=== PATIENT | female | born 2000 | race Caucasian/White ===

== ENCOUNTER 2022-07-27 08:50 | Outpatient (CLI) | payer BC, SELFPAY ==
--- NOTE | 2022-07-27 09:00 | CRLHL7_ITS ---
For Patients: As a result of the Cures Act, medical imaging exams and procedure reports are released immediately into your electronic medical record. You may view this report before your referring provider. If you have questions, please contact your health care provider. INDICATION: First trimester scan, establish dates. COMPARISON: None. TECHNIQUE: Real-time tyler-scale imaging of the pelvis was performed. FINDINGS: Sonographic imaging demonstrates a single living intrauterine gestation. The embryo demonstrates a regular cardiac rate measuring 166 beats per minute. The embryo`s crown-rump length measurement of 1.8 cm corresponds to a gestational age of 8 weeks 2 days with a sonographic due date of March 06, 2023. There is a normal-appearing yolk sac measuring 2.7 mm. There are no gross abnormalities noted within the embryo at this early state of development. The placenta has not yet developed. The gestational sac has a normal appearance and there is no evidence of a perigestational hemorrhage. The amount of fluid within the sac appears appropriate for gestational age. The cervix is closed. The myometrium appears normal. The ovaries are of normal size. The right ovary measures 3.2 x 1.2 x 1.2 cm. The left ovary measures 3.4 x 2.1 x 1.7 cm. Corpus luteum cyst of on the left measuring 1.8 x 1.7 x 1.5 cm. There are no suspicious fluid collections noted in the cul-de-sac. IMPRESSION: Normal first trimester OB ultrasound exam. Gestational age calculated at 8 weeks 2 days with a sonographic due date of March 06, 2023. Dictated by Lucho Galloway MD @ 07/27/2022 11:21:19 AM (Electronically Signed)
== END 2022-07-27 08:51 | disposition home or self-care (01) ==
LOC: US 08:54
PROVIDERS: Visit Provider Advanced Practice Midwife
DX: Z34.91 Encounter for supervision of normal pregnancy, unspecified, first trimester (principal); Z3A.08 8 weeks gestation of pregnancy
CPT/HCPCS: 76817; 86592; 86703; 86762; 86787; 86803; 86850; 86900; 86901; 87086; 87340; 87491; 87591

== ENCOUNTER 2022-10-19 08:19 | Outpatient (CLI) | payer BC, SELFPAY ==
--- NOTE | 2022-10-19 08:15 | CRLHL7_ITS ---
For Patients: As a result of the Century Cures Act, medical imaging exams and procedure reports are released immediately into your electronic medical record. You may view this report before your referring provider. If you have questions, please contact your health care provider. INDICATION: Evaluate anatomy. COMPARISON: 07/27/2022 TECHNIQUE: Real time tyler scale imaging of the fetus was performed as well as color Doppler analysis of the umbilical vessels. FINDINGS: Sonographic imaging demonstrates a single living intrauterine gestation. Fetus demonstrates a regular cardiac rate of 143 beats per minute. Fetus has a vertex position. The placenta lies left posterior without evidence of placenta previa. The edge of the placenta is located 10.8 cm from the internal cervical os. Amniotic fluid volume appears normal. Single deepest vertical pocket: 4.6 cm. The cervix is closed and measures 3.8 cm in length. The composite ultrasound gestational age is calculated at 20 weeks 6 days with an estimated sonographic due date of 03/02/2023. The estimated weight is 365 grams which lies at the 90th %. The following biometric measurements were obtained: Biparietal diameter: 5.2 cm/21 weeks 5 days greater than 97th% Head circumference: 18.2 cm/20 weeks 4 days 81st% Abdominal circumference: 15.9 cm/21 weeks 0 days 83rd% Femur length: 3.2 cm/20 weeks 0 days 55th% The HC/AC ratio measures: 1.15 range (1.06-1.25) On anatomic survey, there is a normal appearance of the cerebral ventricles, cavum septi pellucidi, cisterna magna and cerebellum. The nose, lips, and facial profile appear normal. The cervical, thoracic and lumbar spine are well visualized and appear normal. There is a normal four-chamber heart view and the left and right ventricular outflow tracts appear normal. The diaphragm and stomach appear normal. The kidneys and bladder also appear normal. There is a normal three-vessel cord and cord insertion site. The four extremities appear normal. IMPRESSION: Sonographic gestational age 20 weeks 6 days and sonographic due date 03/02/2023. Sonographic age is 8 days ahead of the clinical age. No intrinsic abnormalities noted on anatomic survey. Dictated by Syed Lee MD @ 10/20/2022 9:50:24 AM (Electronically Signed)
== END 2022-10-19 08:20 | disposition home or self-care (01) ==
LOC: US 08:21
PROVIDERS: PCP Advanced Practice Midwife; Visit Provider Advanced Practice Midwife
DX: Z34.82 Encounter for supervision of other normal pregnancy, second trimester (principal); Z3A.20 20 weeks gestation of pregnancy
CPT/HCPCS: 76805

== ENCOUNTER 2022-12-14 13:25 | Outpatient (CLI) | payer BC, SELFPAY | END 2022-12-14 13:26 | disposition home or self-care (01) | LOC: NFLDREF 12-17 00:41 | PROVIDERS: PCP Advanced Practice Midwife; Referring Provider Advanced Practice Midwife; Visit Provider Advanced Practice Midwife | DX: Z34.92 Encounter for supervision of normal pregnancy, unspecified, second trimester (principal); Z3A.27 27 weeks gestation of pregnancy | CPT/HCPCS: 86592 ==

== ENCOUNTER 2023-01-11 07:16 | Outpatient (CLI) | payer BC, SELFPAY ==
--- NOTE | 2023-01-11 07:15 | CRLHL7_ITS ---
For Patients: As a result of the Cures Act, medical imaging exams and procedure reports are released immediately into your electronic medical record. You may view this report before your referring provider. If you have questions, please contact your health care provider. INDICATION: female. COVID in . TECHNIQUE: Transabdominal obstetrical ultrasound. COMPARISON : October 19, 2022. FINDINGS: Single living intrauterine in vertex presentation. Posterior placenta. heart rate 136 beats per minute. Normal amniotic fluid. Single deepest pocket measurement 7.7 cm. Amniotic fluid volume index is normal at 19.8 cm. Biparietal diameter 8.6 cm, 34 weeks 4 days, greater than the 97th percentile. Head circumference 31.1 cm, 34 weeks 6 days, 90th percentile. Abdominal circumference 29.2 cm, 33 weeks 1 day, 86th percentile. Femur length 6.2 cm, 32 weeks 1 day, 48th percentile. Composite calculated ultrasound age 33 weeks 5 days with a sonographic due date of February 24, 2023. Estimated weight 2136 g which lies at the 84th percentile. The head to abdominal circumference ratio is 1.07 which is within normal limits (0.95-1.11). IMPRESSION: Single living intrauterine in vertex presentation. Composite calculated ultrasound age 33 weeks 5 days with a sonographic due date of February 24, 2023. This is advanced by 14 days when compared with the age based on the last menstrual period provided. Appropriate growth and maturation when compared with the prior study. Dictated by Lucho Galloway MD @ 01/11/2023 9:16:50 AM (Electronically Signed)
== END 2023-01-11 07:17 | disposition home or self-care (01) ==
LOC: US 07:17
PROVIDERS: PCP Advanced Practice Midwife; Visit Provider Advanced Practice Midwife
DX: U07.1 COVID-19 (principal); O98.513 Other viral diseases complicating pregnancy, third trimester; Z3A.33 33 weeks gestation of pregnancy
CPT/HCPCS: 76816

== ENCOUNTER 2023-03-14 05:25 | Inpatient (IN) | payer BC, SELFPAY ==
[2023-03-14] VITALS (75 sets, daily range): BP systolic 77–135; BP diastolic 40–118; PULSE 60–107; RESP 16; TEMP 36.6–37.1; O2SAT 96–100; BMI 32.1
[2023-03-14] MEDS: LACTATED RINGERS 1000 ML 1,000 ML 500 ML IV ×2 (06:45→08:42)
[2023-03-14] MEDS: ROPIVACAINE 0.2 % PF 10 ML INJ 20 MG EPIDURAL (06:52)
[2023-03-14] MEDS: ROPIVACAINE 0.2% 100 ml 100 ML 12 MG EPIDURAL ×2 (06:58→15:15)
--- NOTE | 2023-03-14 07:12 | W.PM.LDBA ---
Subjective History of Present Illness Time Seen by Provider: 07:18 Date Seen: 03/14/23 Comments: Di is being admitted to Labor and Delivery for labor. She is a 22 year old G 1 P 0 at?40.4 weeks gestation. Her full history and physical was dictated by Angie Thorne on 02/22/23. Please see this for details. ? Di had her membranes stripped in the office yesterday. Ctx began shortly after, becoming stronger throughout the night. Denies SROM. She is coping well with labor pain/contractions. Her partner is with her for support. She has an epidural in place for pain management, and is currently comfortable with it. OB Problem List: ? ? : Bret H & P done 02/22 by Angie Thorne IOL scheduled for 03/18 for Post-dates 1.? Baby aspirin at 12 weeks - 2 risk factors - primigravida, mother had preeclampsia. 2.? Hx of depression and anxiety -Has previously done therapy and medication, stable now X 2 years without 3.? Rubella Non immune - NEEDS vaccine 4.? COVID infection 10/06/2022 Growth at 32 weeks: EFW 84%ile, DESTINY 19.8 at 32wks and measuring 14 days ahead with good dating Growth at 36 weeks: EFW 85%ile, normal DESTINY 6.6 5. Anemia, 10.5 at 28 weeks 6. Possible kidney stones and UTI, e.coli, 02/01 Antibiotics prescribed, Cephalexin x7days Needs test of cure in 4 weeks (~38 wks) 7. Anemia, Hgb 10.9. Hgb 10.7 at 36 weeks. Iron supplement M/W/F 8. Pyelonephritis at 36.2wks. Hospitalized for IV abx Prophylactic abx until delivery. OB - Problem Based A/P Additional Plan (1) Uterine contractions: Status: Acute (2) : Status: Acute Plan at 40.4 weeks GBS neg complicated by: -hx of depression & anxiety -rubella non immune -Covid in -anemia -Possible kidney stones/UTI -Pylonephritis at 36 weeks Spontaneous active labor, uncomplicated at this time Epidural placed for pain management 1. Admit to L & D for active labor 2. Candidate for analgesia of choice, epidural already placed per pt preference 3. Continuous monitoring r/t epidural 4. IV placed r/t epidural 5. Expectant management at this time 6. Anticipate progress to NVD Delivery/Labor/Induction Plan Plan: expectant management OB Exam Physical Exam Vital signs: Temp Pulse Resp BP Pulse Ox 98.4 F 79 16 113/70 99 03/14/23 04:34 03/14/23 07:08 03/14/23 04:34 03/14/23 07:08 03/14/23 07:05 Narrative: VSS, afebrile? General Appearance:? Calm, cooperative.? No acute distress.? Normal affect.? Psychiatric Exam: Alert and oriented, appropriate affect? HEENT: normocephalic, neck supple, full ROM? Respiratory:? Symmetrical chest wall movement.? Normal respiratory effort.? Clear to auscultation? Cardiac:? regular rate and rhythm? Abdomen: Gravid, non tender? Extremities:? normal and trace edema? Skin: warm, dry.??? Ctx:? Q 2-5 min apart.? ? Moderate?- Strong? FHTs:? Baseline: 140.? Variability: mod.?? Accels: present.??? Decels:? none.? SVE: /+1 per RN? Membranes: intact?
--- NOTE | 2023-03-14 08:38 | P.ANBPRC_ITS ---
PFSH PFS Surgical History [place] teeth extracted ?K08.409 - Partial loss of teeth, unspecified cause, unspecified class (ICD- 10) Social History What is your current living situation?: I presently have a place to live Problems where you live: no known problems In the past 12 months, utilities in danger of being shut off: no In the past 12 mos, have been you worried that your food would run out before you had money to buy more?: never true In the past 12 mos, the food you bought just didn't last and you didn't have money to buy more?: never true Smoking Status: Never smoker How often does anyone, including family, friends and others, physically hurt you : never How often does anyone, including family, friends and others, insult or talk down to you: never How often does anyone, including family, friends and others, threaten you with harm: never How often does anyone, including family, friends and others, scream or curse at you: never Little interest or pleasure in doing things: not at all Feeling down, depressed, or hopeless: not at all Meds Home Medications and Allergies Home Medications Medication Instructions Recorded Confirmed Type aspirin 81 mg capsule 81 mg PO QDAY 09/21/22 03/14/23 History ferrous fumarate-vitamin C 66 1 tab PO DAILY 12/27/22 03/14/23 History mg-125 mg chewable tablet Allergies Allergy/AdvReac Type Severity Reaction Status Date / Time No Known Drug Allergies Allergy Verified 03/14/23 04:15 Results Vital Signs Vital Signs: Last Vital Signs Temp 98.8 F 03/14/23 07:12 Pulse 64 03/14/23 08:22 Resp 16 03/14/23 07:12 BP 89/55 L 03/14/23 08:22 Pulse Ox 98 03/14/23 08:32 Weight: 90.31 kg Height: 167.64 cm Anesthesia Procedures Epidural Insertion Patient Location: OB Start Time: 06:40 Stop Time: 07:40 Start Date: 03/14/23 Stop Date: 03/14/23 Reason for Block: primary anesthetic Patient Position: sitting Performed By: Austin Roy Preanesthetic Checklist: IV checked, risks and benefits discussed, surgical consent, monitors and equipment checked, pre-op evaluation, timeout performed and anesthesia consent Prep: chlorhexidine gluconate Monitoring: blood pressure monitoring, nuclear monitoring technician, continuous pulse oximetry and heart rate Approach: midline Vertebral Space: lumbar (1-5) Needle Type: Tuohy needle Injection Technique: continuous catheter (catheter) Needle gauge: 17 Needle Length (cm): 10 cm Needle Insertion Depth (cm): 5 Catheter Gauge: 19 Catheter Type: multi-orifice Catheter at skin depth (cm): 11 Test Dose Result: negative and lidocaine 1.5% with epinephrine 1 to 200,000
[2023-03-14] MEDS: PHENYLEPHRINE 100 MCG/ML SYRINGE IVP (09:54)
[2023-03-14] MEDS: OXYTOCIN 30 unit/500 ML in NS 30 UNIT/500 ML BAG 325 UNIT IVPB (14:07)
[2023-03-14] MEDS: LIDOCAINE 1 % PF 30 ML INJECTION (14:33)
[2023-03-14 16:19] LABS: Basophils Percent Auto 0.1 % (0.0-3.0); Eosinophils Percent Auto 0.1 % (0.0-7.0); Hematocrit 34.1 % (33.0-51.0); Immature Granulocytes Pct Auto 0.3 %; Lymphocytes Percent Auto 5.2 % (20-44); Mean Corpuscular HGB Conc 32 gm/dL (32-36); Mean Corpuscular Hemoglobin 30 pg (26-34); Mean Corpuscular Volume 92 fL (80-100); Monocytes Percent Auto 5.6 % (0.0-11.0); Neutrophils Percent Auto 88.7 % (42.0-72.0); Platelet Count* 159 K/uL (140-440); RDW Coefficient of Variation % 13.9 % (11.5-15.5); Red Blood Count 3.71 m/uL (4.00-5.20)
[2023-03-14] MEDS: TRANEXAMIC ACID 100 MG/ML INJ 1000 MG IV (16:28)
[2023-03-14 16:36] LABS: Slide Review Reflex No
--- NOTE | 2023-03-14 16:44 | W.PM.VAGDEL1 ---
Procedure Delivery date: 03/14/23 Procedure Done: Global Procedure Details: Procedures Operation Date: 03/14/23 15:45 Actual Procedure Side Surgeon p Vaginal Laceration Repair Not Applicable Seratiara Blake MD Intrapartal Events: None Delivery monitor: external FHT and external uterine Route of delivery: Laceration description: Perineal - 2nd Degree (Left side anterior laceration also repaired) Delivery repair: Vicryl Estimated blood loss (mL): 400 Anesthesia type: Epidural Disposition: floor
[2023-03-14] MEDS: ESTROGENS, CONJUGATED VAGINAL 0.625 MG/G CREAM 1 APPLIC VAGINAL (17:18)
--- NOTE | 2023-03-14 17:20 | CRLHL7_ITS ---
For Patients: As a result of the Century Cures Act, medical imaging exams and procedure reports are released immediately into your electronic medical record. You may view this report before your referring provider. If you have questions, please contact your health care provider. Indication: EVAL FOR RETAINED INSTRUMENTS POST . Technique: Abdomen 1 view. Comparison: None. Findings/Impression: There are 2 thin wire-like foreign bodies versus surgical materials projecting over the abdomen, the first descends from the epigastric region distally down to the mid lumbar spine in the midline. The second is coiled in the lower pelvis. Recommend clinical correlation. Nonobstructive bowel gas pattern. Region of lucency projecting over the left upper quadrant and left lateral abdominal wall, likely postsurgical. The osseous structures are unremarkable for age. Dictated by Caesar Enamorado MD @ 03/14/2023 6:39:01 PM (Electronically Signed)
[2023-03-14 17:22] LABS: INR 0.92 (0.91-1.10); Prothrombin Time 12.9 Seconds
[2023-03-14 17:23] LABS: Partial Thromboplastin Time* 26 Seconds (23-33)
--- NOTE | 2023-03-14 18:11 | PM.PROC ---
Procedure Note Time Seen by Provider: 16:00 Date Seen: 03/14/23 Provider Contact Time: 15:15 Date of procedure: 03/14/23 Will [facility] bill your pro fee for this procedure?: Yes Procedure Description: VAGINAL LACERATION REPAIR PREOPERATIVE DIAGNOSIS: 1. Vaginal lacerations POSTOPERATIVE DIAGNOSIS: 1. Left pelvic side wall hematoma 2. Left sulcal laceration starting from the cervicouterine junction extending to left labia minora PROCEDURE: 1. EUA 2. Vaginal lacerations repair SURGEON: Sera Blake MD SENIOR SECURITY ARCHITECT: Shahla Braxton MD ANESTHESIA: Epidural FINDINGS: 1. cervix without laceration 2. Left pelvic side wall hematoma - non-expanding 3. Left sulcal laceration starting from the cervicouterine junction extending to left labia minora with brisk bleeding ESTIMATED BLOOD LOSS: 400 cc from delivery, 400 cc from OR URINE OUTPUT: 600 cc, knight in place PACKING: Vaginal packing soaked with Premarin cream in place, tied to Knight cath COMPLICATIONS: Bleeding from laceration requiring 1g of TXA and 1u of FFP PREOP ANTIBIOTIC: 2g of cefoxitin SPECIMEN: None INDICATIONS: 22yo G 1 P 1001, with continued vaginal bleeding after spontaneous vaginal delivery and laceration repairs. I was asked to assess the patient at 3:15 p.m. due to continued vaginal bleeding from an unknown source. Upon initial examination, there was overt bleeding from an unrepaired laceration on the left pelvic side wall. I was unable to perform adequate exam bedside due to brisk bleeding and limited tools. I counseled patient on repair in the operating room as the safest option. She was consented for exam under anesthesia and laceration repair. Vaginal packing was placed for temporary tamponade. DESCRIPTION OF PROCEDURE: The patient was taken to the operating room where her epidural was appropriately redosed. Vaginal packing removed. She was prepared and draped in normal sterile fashion in the dorsal lithotomy position in [facility] stirrups, taking care to avoid lower extremity hyperextension, hyperflexion or compression. A surgical time-out was performed with the entire operative staff per protocol. Perioperative antibiotics were given and pneumoboots were placed and activated. EUA revealed the above findings. Knight catheter was placed. Albert and Breisky retractors were placed in the patient's vagina and two ring forceps were placed on the anterior and posterior lips of the cervix to trace and confirm that there was no cervical laceration. A 2x2 cm hematoma was identified on left pelvic side wall. The apex of the left sulcal laceration was noted to be the cervicouterine junction. Anchoring stitch with 2-0 vicryl was placed at the apex. The laceration was reapproximated using 2-0 Vicryl in a continuous locking manner. Several [id number] were placed along the length of the laceration repair due to continued bleeding. I had concern for possible coagulopathy given her brisk bleeding at other sutures sites that were repaired prior to OR as well. Decision was made to give her 1g of TXA and 1u of FFP. Bleeding improved after 1g of TXA was administered. [id number] were used to obtain hemostasis at all bleeding sites. Rectal exam was performed to confirmed no retained sutures in the rectum. Hemostasis was confirmed again. Premarin soaked vaginal packing was placed and tied to her knight catheter. Both will be removed in 12 hours. The patient tolerated the procedure well. Sponge, lap and needle counts were correct x 2. The patient was taken to the recovery room in stable condition. I was informed that needle count was incorrect during her vaginal delivery and they were unable to find the missing needle. Decision was made to obtain an X-ray. Vaginal packing noted on X-ray but no needle identified. Anesthesia: epidural
--- NOTE | 2023-03-14 19:56 | W.PM.OBVAGDE ---
OB Procedure Vag Delivery Mother Details Mother Details: The patient is a 22 year-old, now 1, Para 1, admitted on 03/14/23 at 40.4 Days gestation. : 1 Para: 1 Weeks Gestation: 40.4 Admission Date: 03/14/23 Additional Details Amniotic Membrane Status: SROM (at delivery) Amniotic Membrane Rupture Date: 03/14/23 Amniotic Membrane Rupture Time: 14:05 Amniotic Membrane Fluid Description: Clear Analgesia/Anesthesia Type: Epidural Waterbirth: No Pitcoin: No (PP only for AMTSL) Intrapartal Events: None Labor Onset: 06:45 Complete: 11:43 Pushin:51 Heart: heart tones during second stage were 135, minimal variability, occ variability with accels. Delivery Details Delivery Date: 03/14/23 Delivery Time: 14:05 Route of delivery: Infant Gender: Male Viability: Alive; Heart Rate Present Position at Delivery: OA Delivery Details: Di continued to progress after epidural was placed. SVE to assess for progress, and she was noted to be complete and +1 station, feeling mild pressure. Practice push done, and some descent noted. Decision made to continue to push. She pushed in various positions to help with descent. Slow but continued progress noted. At 1405 a viable? male delivered in vertex OA presentation over intact perineum via spontaneous vaginal?delivery. ?Infant was placed on maternal abdomen, and bag was removed from infants head. SROM occurred after delivery of the head. ?Cord was clamped and cut after about 5 mins. Increased bleeding noted at that time, and decision made to clamp and cut. Placenta delivered easily shortly after.? ? weight pending. ? 9 at 1 minute and 9 at 5 minutes. ?Shoulder dystocia: no. ?Nuchal cord: no. Nuchal arm/hand noted shortly after delivery of head, unable to assess which one, but likely left. Placenta delivered spontaneously and complete at 1411 with a 3 vessel cord. Mother and were stable after?delivery. Lacerations:? 2nd degree, repaired with 3-0 vicryl.? Left anterior vaginal wall noted to be briskly bleeding, repaired first. After both repairs done, noted continued trickle of blood. Dr. Blake called to bedside to assess for possible cervical laceration or source of bleeding. Noted to be deep continuation of left anterior vaginal wall laceration that was repaired. Decision made to proceed to OR for further repair. Blood loss: 400 mL prior to OR. Blood loss measurement type: QBL? Sponge count is correct. Needle count - extra suture thrown by RN, wrong needle. Not removed from package, but not removed from table or used on pt. 2 suture needles and straight needle removed from table. 1 Minute Interval Total Score: 9 5 Minute Interval Total Score: 9 Additional Details Shoulder Dystocia: No Placenta Delivery Time: 14:11 Placental Delivery Description: Spontaneous Delivery repair: Vicryl Procedure Done: Global Blood Loss: 800 Laceration: Perineal - 2nd Degree Blood Loss Measurement Type: QBL Bakri Used: No Sponge/Need Count Correct: No (xray ordered, MD notified) Cord Vessel Description: 3 Vessels Event Summary Status: Mother and were stable after delivery. Disposition: floor
[2023-03-14] MEDS: cefOXitin 2 GM in 0.9 % SODIUM CHLORIDE Mini-bag 100 ML IVPB (20:43)
[2023-03-14] MEDS: IBUPROFEN 600 MG TABLET PO (21:11)
[2023-03-14] MEDS: OXYCODONE 5 MG TABLET PO ×2 (21:31→22:23)
[2023-03-14 21:46] LABS: INR 1.02 (0.91-1.10)
[2023-03-14 21:47] LABS: Fibrinogen* 362 mg/dL (200-450); Partial Thromboplastin Time* 27 Seconds (23-33)
[2023-03-14 21:50] LABS: Basophils Percent Auto 0.1 % (0.0-3.0); Eosinophils Percent Auto 0.1 % (0.0-7.0); Hematocrit 27.2 % (33.0-51.0); Hemoglobin* 8.8 gm/dL (12.0-16.0); Immature Granulocytes Pct Auto 0.3 %; Lymphocytes Percent Auto 5.8 % (20-44); Mean Corpuscular HGB Conc 32 gm/dL (32-36); Mean Corpuscular Hemoglobin 30 pg (26-34); Mean Corpuscular Volume 92 fL (80-100); Monocytes Percent Auto 4.3 % (0.0-11.0); Neutrophils Percent Auto 89.4 % (42.0-72.0); Platelet Count* 150 K/uL (140-440); Red Blood Count 2.96 m/uL (4.00-5.20); White Blood Count* 13.98 K/uL (4.50-11.00)
[2023-03-14 22:09] LABS: Slide Review Reflex No
[2023-03-15] MEDS: ACETAMINOPHEN 500 MG TABLET 1000 MG PO ×4 (00:32→18:16)
[2023-03-15 01:04] VITALS: BP 105/64; PULSE 86; RESP 16; TEMP 36.6; O2SAT 97
[2023-03-15] MEDS: IBUPROFEN 600 MG TABLET PO ×4 (02:55→21:07)
[2023-03-15] MEDS: OXYCODONE 5 MG TABLET PO (02:56)
[2023-03-15 03:48] VITALS: BP 108/69; PULSE 101; RESP 16; TEMP 36.6; O2SAT 96
[2023-03-15 07:39] LABS: Basophils Percent Auto 0.2 % (0.0-3.0); Eosinophils Percent Auto 0.6 % (0.0-7.0); Hematocrit 26.1 % (33.0-51.0); Hemoglobin* 8.3 gm/dL (12.0-16.0); Immature Granulocytes Pct Auto 0.5 %; Mean Corpuscular HGB Conc 32 gm/dL (32-36); Mean Corpuscular Hemoglobin 30 pg (26-34); Mean Corpuscular Volume 93 fL (80-100); Neutrophils Percent Auto 76.7 % (42.0-72.0); Platelet Count* 145 K/uL (140-440); RDW Coefficient of Variation % 14.2 % (11.5-15.5); Red Blood Count 2.81 m/uL (4.00-5.20); White Blood Count* 12.19 K/uL (4.50-11.00)
--- NOTE | 2023-03-15 07:39 | PM.OBPNVD1 ---
OB - PN:Subj Subjective Date Seen: 03/15/23 Patient comments OB post-: no complaints, pain well controlled, tolerating diet and flatus present [place] status: and doing well [place] feeding status: exclusively Narrative: Day 1:? Vaginal Delivery at 40 and 4/7 weeks.? ?? Complications:? deep 2nd degree laceration requiring repair in the OR for visualization ? The patient feels well.? The pain is well controlled with current medications.? She has no new complaints.? Urinary output is adequate. I removed her Cho catheter at the time of the assessment and she has not yet been up to urinate.? Has a good appetite, is tolerating a general diet, is passing flatus, and has not had a bowel movement.? Has small amount of rubra lochia.?Her vaginal packing was removed. there was a scant amount of bleeding that came out with the packing but no continued bleeding. Bleeding precautions reviewed. She is ambulating well.?Hgb this am was 8.3. Denies feeling dizzy, lightheaded or unexpected fatigue. Will begin PO iron supplementation. OB - PN: Obj Exam Physical Exam: Vital signs: Temp Pulse Resp BP Pulse Ox O2 Del Method 97.8 F 101 H 16 108/69 96 Room Air 03/15/23 03:48 03/15/23 03:48 03/15/23 03:48 03/15/23 03:48 03/15/23 03:48 03/15/23 03:48 Narrative: GENERAL APPEARANCE:? normal affect, alert, no distress? MOOD:? appropriate? CHEST:? clear to auscultation and percussion? HEART:? regular rate and rhythm? ABDOMEN:? soft, non-tender the uterine fundus is U/2 and is appropriate for the stage of recovery.? PERINEUM:? mild edema of the perineum, there is a deep 2nr degree that is healing well.? EXTREMITIES:? normal and no edema? OB - PN: Obj Data Labs Labs: Laboratory Results - last 24 hr 03/14/23 03/14/23 15:42 21:24 WBC 17.20 H 13.98 H RBC 3.71 L 2.96 L Hgb 11.0 L 8.8 L Hct 34.1 27.2 L MCV 92 92 MCH 30 30 MCHC 32 32 RDW Coeff of Rafy 13.9 14.0 Plt Count 159 150 Neut % (Auto) 88.7 H 89.4 H Lymph % (Auto) 5.2 L 5.8 L Brewster % (Auto) 5.6 4.3 Eos % (Auto) 0.1 0.1 Baso % (Auto) 0.1 0.1 Neut # (Auto) 15.30 H 12.50 H Lymph # (Auto) 0.90 0.80 L Brewster # (Auto) 1.00 H 0.60 Eos # (Auto) 0.00 0.00 Baso # (Auto) 0.00 0.00 INR 0.92 1.02 APTT 26 27 Fibrinogen 362 Blood Type A Positive Antibody Screen NEGATIVE Crossmatch (AHG) See Detail OB - PN: A/P Delivery Assessment and Plan (1) Anemia, : Status: Acute (2) care following vaginal delivery: Status: Acute (3) Lactating mother: Status: Acute Plan 1. Routine cares.? 2. Anticipate discharge tomorrow. 3. PO iron supplementation ordered.? Plan day: 1 Plan: routine care
[2023-03-15 07:40] VITALS: BP 117/75; PULSE 84; RESP 18; TEMP 36.6; O2SAT 96
[2023-03-15 07:46] LABS: Slide Review Reflex No
[2023-03-15] MEDS: DOCUSATE SODIUM 100 MG CAPSULE PO ×2 (08:48→21:07)
[2023-03-15] MEDS: FERROUS SULFATE 325 MG TABLET PO (08:48)
[2023-03-15 12:59] VITALS: BP 104/70; PULSE 91; RESP 16; TEMP 36.8; O2SAT 98
[2023-03-15 16:36] VITALS: BP 105/66; RESP 18; TEMP 36.7; O2SAT 99
[2023-03-15 20:20] VITALS: BP 106/70; PULSE 80; RESP 16; TEMP 36.5; O2SAT 97
[2023-03-16] MEDS: ACETAMINOPHEN 500 MG TABLET 1000 MG PO ×2 (02:04→08:05)
[2023-03-16 02:19] VITALS: BP 110/77; PULSE 76; RESP 16; TEMP 36.5; O2SAT 97
[2023-03-16] MEDS: IBUPROFEN 600 MG TABLET PO (04:50)
[2023-03-16] MEDS: FERROUS SULFATE 325 MG TABLET PO (08:05)
[2023-03-16] MEDS: DOCUSATE SODIUM 100 MG CAPSULE PO (08:06)
[2023-03-16 08:08] VITALS: BP 109/77; PULSE 98; RESP 16; TEMP 36.4; O2SAT 97
--- NOTE | 2023-03-16 09:25 | P.DS_ITS ---
DS: Providers Provider Date Seen: 03/16/23 Date of admission: 03/14/23 05:25 Primary care physician: Radha Thorne CNM Admitting Clinician: Radha Porras CNM Attending Physician on discharge: Radha Porras CNM Date of Discharge: 03/16/23 DS: Diagnosis Discharge Diagnosis (1) Lactating mother: Status: Acute (2) care following vaginal delivery: Status: Acute (3) Anemia, : Status: Acute Exam Narrative: Exam Narrative: GENERAL APPEARANCE:? normal affect, alert, no distress? MOOD:? appropriate? CHEST:? clear to auscultation and percussion? HEART:? regular rate and rhythm? ABDOMEN:? soft, non-tender the uterine fundus is 2 cm Below Umbilicus, Midline and is appropriate for the stage of recovery. ? PERINEUM:? mild edema of the perineum, there is a deep 2nd degree that is healing well.? EXTREMITIES:? normal and no edema? Patient has no complaints? No active bleeding?? Doing well? She is requesting discharge home.? Const: Vital Signs, click to edit/add: Vital Signs - 24 hr 03/15/23 12:59 03/15/23 16:36 03/15/23 20:20 Temperature 98.3 F 98.0 F 97.7 F Pulse Rate [Blood Pressure Cuff] 91 80 Respiratory Rate 16 18 16 Blood Pressure [Ri ght Arm] 104/70 105/66 106/70 Pulse Oximetry 98 99 97 Oxygen Delivery Me thod Room Air Room Air Room Air 03/16/23 02:19 03/16/23 08:08 Temperature 97.7 F 97.6 F Pulse Rate [Blood Pressure Cuff] 76 98 Respiratory Rate 16 16 Blood Pressure [Ri ght Arm] 110/77 109/77 Pulse Oximetry 97 97 Oxygen Delivery Me thod Room Air Room Air OB - DS: Summary Hospital Course Hospital Course: Patient is a 22year old, G 1 now P 1? admitted on 03/14/23 at 40 Weeks, 4?Days gestation for active labor.? She had an uncomplicated vaginal delivery.? She delivered a viable male infant.? She is breast feeding and reports things are well.? the patient has done well.? Her pain is well controlled with current medications.? She has no new complaints.? Vitals have been stable. She has remained afebrile. She is voiding without difficulty. She is passing gas and has not had a bowel movement. She is ambulating and denies any dizziness. Will send her home with an iron supplement due to anemia. She is unsure what she is planning for control.?Reviewed options recommended while .? Peripartum Data Infant delivery method: Vaginal Laceration description: Perineal - 2nd Degree (deep requiring rpair in the OR for visualization. ) Episiotomy description: None Procedures: Procedures Operation Date: 03/14/23 15:45 Actual Procedure Side Surgeon p Vaginal Laceration Repair Not Applicable Seratiara Blake MD complications: none [place] Infant Gender: Male Discharge Plan: Home Status at Discharge Functional status at discharge: independent ambulation Overall status at discharge: patient is progressing back to baseline Time Spent with Patient Time attestation: Total time spent providing and/or coordinating discharge services: Discharge Plan Discharge Disposition: Home, Self-Care Date of Admission: 03/14/23 05:25 Attending Provider on Discharge: Radha Porras Primary Care Provider: Radha Thorne Condition: Stable Anticipated Discharge Date/Time: 03/16/23 10:00 Discharge Medications: New docusate sodium 100 mg Capsule 100 mg PO BID Qty: 60 0RF Rx Instructions: Take 1-2 tablets daily as needed for constipation. ibuprofen 600 mg Tablet 600 mg PO Q6H PRNQty: 30 0RF Continued ferrous fumarate-vitamin C 66-125 mg tablet,chewable 1 tab PO DAILY sumatriptan succinate 50 mg tablet 50 mg PO .COMPLEX PRN (Reason: migraine headache) Qty: 30 0RF Rx Instructions: 50 mg orally take 1 tab at onset of headache; if no relief may repeat 1 tab after at least 2 hrs; max = 4 tabs/24 hr PRN; acetaminophen 500 mg Tablet 1,000 mg PO Q6H PRNQty: 0 0RF Discontinued aspirin 81 mg capsule 81 mg PO QDAY Discharge Orders: Discharge Order (Routine); Ordered 03/16/23 Ordered By: Radha Porras Additional Instructions: Discharge instructions were reviewed with the patient including signs and symptoms of infection and home going medications.? Lifting Restrictions: 20 pounds for 6? weeks? ?? Do not drive while taking narcotic pain meds.? Off Work or School for 6 weeks.? ?? Symptoms to report to doctor:? -Bleeding that saturates more than one pad per hour? -Passing clots larger than the size of a golf ball? -Pain not relieved by prescribed medication? -Fever above 100.4 degrees Fahrenheit? -A foul vaginal odor? -Difficulty in emotions, mood and functions? -Thoughts of hurting yourself and/or ? -Painful, reddened area in your breast? -Any drainage, redness or tenderness in your IV/epidural site? -Severe headache that doesn't improve after taking medications? -Changes in vision, including temporary loss of vision, blurred vision, and/or light sensitivity? -Upper abdominal pain (usually under ribs on the right side)? -Decrease in urination or painful, frequent urinating? -Chest pain? -Shortness of breath? -Tenderness or pain with redness and/swelling in the calf(s) of your leg? ?? Follow Up in clinic in 2 and 6 weeks.? ?? consultation services are available to all mothers and babies for the first year after delivery.? To make an appointment, please call [phone].? Activity Level: Activity as Tolerated Discharge Diet: Regular Follow Up Appointments: Radha Thorne CNM [Primary Care Provider] - [facility] [Provider Group] Forms: MyHealth Info Instructions
== END 2023-03-16 10:16 | disposition home or self-care (01) | DRG 560 ==
LOC: OB OUT 05:27 → OB 05:27
PROVIDERS: Obstetrics & Gynecology; Admitting Provider Advanced Practice Midwife; PCP Advanced Practice Midwife; Visit Provider Advanced Practice Midwife
PROC: 0UQG0ZZ Repair Vagina, Open Approach (ICD-10-PCS; principal; 2023-03-14 15:35)
DX: O99.02 Anemia complicating childbirth (principal); D62 Acute posthemorrhagic anemia; O70.1 Second degree perineal laceration during delivery; O71.7 Obstetric hematoma of pelvis; O99.344 Other mental disorders complicating childbirth; F32.A Depression, unspecified; F41.9 Anxiety disorder, unspecified; Z3A.40 40 weeks gestation of pregnancy; Z37.0 Single live birth
CPT/HCPCS: 01967; 36415; 36430; 74018; 85018; 85025; 85384; 85610; 85730; 86850; 86900; 86901; 86922; A9270; J0694; J2001; J2370; J2795; J7120; P9017